=== PATIENT | male | born 2000 | race Caucasian/White ===

== ENCOUNTER 2021-08-29 10:13 | Emergency (ER) | payer OTHER ==
--- OUTSIDE RECORDS SUMMARY | 2021-08-29 10:15 | XMS REPORT | Continuity of Care Document ---
:2000 Author Organization [facility] t Address [address] [place] [address] Care Team Providers Name Role Phone NICK LOYOLA Primary Care Physician Unavailable Esperanza Hill Attending Clinician Esperanza DALAL Attending Clinician Unavailable Livia DA SILVA Attending Clinician Unavailable Esperanza CAMPOS Attending Clinician Unavailable Bouchra Jules Attending Clinician Shahida ANNEALING TORCH OPERATOR Attending Clinician SHAHIDA Attending Clinician Unavailable Nick Loyola MD Attending Clinician NICK LOYOLA Attending Clinician Unavailable Pob, Lab Main Attending Clinician Unavailable Provider, Urgent Care Attending Clinician Unavailable Lab, Fam Pob I Attending Clinician Unavailable Norman STALLINGS Attending Clinician NORMAN Attending Clinician Unavailable Doctor Unassigned, Name Attending Clinician Unavailable Esperanza DALAL Admitting Clinician Unavailable Payers Payer Name Policy Type Policy Number Effective Date Expiration Date Jerald [employer] [id number] 2020 00:00:00 Problems Condition Condition Condition Status Onset Resolution Last Treating Co mments Source Name Details Category Date Date Treatment Clinician Date No known No known Disease Unive rs active active ity of problems problems [facility] Allergies, Adverse Reactions, Alerts Allergy Allergy Status Severity Reaction(s) Onset Inactive Treating Comm ents Source Name Type Date Date Clinician NO KNOWN Drug Active Univers ALLERGIE Class ity of S [facility] Social History Social Habit Start Date Stop Date Quantity Comments Source Exposure to Not sure [facility] SARS-CoV-2 [facility] (event) Cope Alcohol intake 2021-04-18 2021-04-18 Ex-drinker [facility] 00:00:00 00:00:00 (finding) [facility] Tobacco use and 2020-07-25 2020-07-25 Former user [facility] of exposure 00:00:00 00:00:00 [facility] Sex Assigned At [birth year] [facility] y of 00:00:00 00:00:00 [facility] Smoking Status Start Date Stop Date Source Unknown if ever smoked [facility] Former smoker 2020-07-25 00:00:00 2020-07-25 00:00:00 [facility] Medications Ordered Filled Start Stop Current Ordering Indication Dosage Frequency Signature Comments Components Source Medication Medication Date Date Medication? Clinician (SIG) Name Name lidocaine-e 2020-06 No 10mL 10 mL, Uni vers pinephrine 04-19 Intraderma it y of (XYLOCAINE 03:00: 02:45 l, ONCE, 1 [place] W/EPINEPHRI 00 :00 dose, On Medi brandt [place]) [address] [place] [address] %-1:200,000 04/18/21 injection at 2200, 10 mL Routine ceFAZolin 2020-06- No 1000mg 1,000 mg, Univers (ANCEF) 04-19 Intramuscu ity o f injection 02:30: 01:48 lar, ONCE, [place] 1,000 mg 00 :00 1 dose, On Medic al [facility] 04/18/21 at 2130, STAT
Re ason for Anti-Infec tive: Empiric Therapy for Suspected Infection< br>Empiric Therapy Site: Skin / Soft tissue<br& gt;Duratio n of therapy: 7 days No known 2020-06 No Univers medications ity of 20:23: [address] doxycycline 2020- No 100mg 100 mg, U nivers hyclate 01-16 Oral, ity of (Vibramycin 01:15: 00:08 [place]CE, [place] capsule 00 :00 dose, Sun Medic al 100 mg 01/15/21 at Branch 2015, URIEL
Re ason for Anti-Infec tive: Empiric Therapy for Suspected Infection< br>Empiric Therapy Site: Skin / Soft tissue
Duration of therapy: 7 days doxycycline 2020- No [id number] 100mg Take 1 Univers hyclate 100 01-15 capsule by i ty of mg capsule 00:00: 04:59 mouth 2 Kwabena as 00 :00 (two) [facility] daily for 10 days. No known No Univers medications ity [facility] No known No [facility] No known No [facility] No known No [facility] No known No Univers medications [facility] Immunizations Ordered Filled Immunization Date Status Comments Sour e Immunization Name Name Td 2021-01-15 Completed [facility] 00:00:00 [facility] Branch Td 2021-01-15 Completed [facility] 00:00:00 [facility] Vital Signs Vital Name Observation Time Observation Value Comments Source Systolic blood 2021-04-19 02:45:00 133 mm[Hg] Univer sity of [facility] Diastolic blood 2021-04-19 02:45:00 86 mm[Hg] [facility] Heart rate 2021-04-19 02:45:00 91 /min [facility] Respiratory rate 2021-04-19 02:45:00 17 /min [facility] Oxygen saturation in 2021-04-19 02:45:00 97 /min [facility] Arterial blood by [facility] Pulse oximetry Branch Body weight 2021-04-19 01:59:00 90.719 kg [facility] BMI 2021-04-19 01:59:00 26.39 kg/m2 [facility] Body temperature 2021-04-19 01:17:00 37.06 Whit [facility] Body temperature 2021-01-15 23:59:00 36.89 Whit [facility] Systolic blood 2021-01-15 22:55:00 143 mm[Hg] Univer sity of [facility] Diastolic blood 2021-01-15 22:55:00 93 mm[Hg] Unive rsity [facility] Heart rate 2021-01-15 22:55:00 95 /min [facility]i ty [facility] [place] [facility] Respiratory rate 2021-01-15 22:55:00 16 /min Univ ers[facility] [place] [facility] Body height 2021-01-15 22:55:00 185.4 cm [facility] [place] [facility] Body weight 2021-01-15 22:55:00 90.719 kg [facility] [place] [facility] BMI 2021-01-15 22:55:00 26.39 kg/m2 Universi ty of [facility] Oxygen saturation in 2021-01-15 22:55:00 98 /min University of Arterial blood by [facility] Pulse oximetry Branch Systolic blood 2020-07-27 19:17:00 122 mm[Hg] Univer sity of pressure [place] [facility] Diastolic blood 2020-07-27 19:17:00 66 mm[Hg] Unive rsity of pressure [place] [facility] Heart rate 2020-07-27 19:17:00 77 /min [facility] [place] [facility] Body height 2020-07-27 19:17:00 185.4 cm [facility] [place] [facility] Body weight 2020-07-27 19:17:00 96.616 kg [facility] [place] [facility] BMI 2020-07-27 19:17:00 28.10 kg/m2 [facility] [place] [facility] Systolic blood 2020-07-25 16:52:00 162 mm[Hg] Univer sity of pressure [place] [facility] Diastolic blood 2020-07-25 16:52:00 84 mm[Hg] Unive rsity of pressure [facility] Branch Heart rate 2020-07-25 16:48:00 73 /min [facility]i ty [facility] [place] [facility] Body temperature 2020-07-25 16:48:00 37.17 Whit Univ ersity [facility] [place] [facility] Respiratory rate 2020-07-25 16:48:00 17 /min Univ ersity of [facility] Branch Body height 2020-07-25 16:48:00 185.4 cm [facility] [place] [facility] Body weight 2020-07-25 16:48:00 90.719 kg [facility] [place] [facility] BMI 2020-07-25 16:48:00 26.39 kg/m2 Universi ty of [facility] Branch Oxygen saturation in 2020-07-25 16:48:00 99 /min University of Arterial blood by [facility] Pulse oximetry Branch Procedures Procedure Date / Time Performing Clinician Source Performed CT KNEE LEFT WO CONTRAST 2021-04-19 02:18:27 David Dalal [facility] COVID-19 (ID NOW RAPID 2021-04-19 01:33:00 David Dalal [facility] TESTING) Medical Branch XR FOOT 3+ VW RIGHT 2021-01-15 23:24:41 Neelam Marie [facility] NOTICE OF PRIVACY 2021-01-15 22:43:28 Doctor Unassigned, [facility] PRACTICES [facility] CONSENT/REFUSAL FOR 2021-01-15 22:38:49 Doctor Unassigned, [facility] DIAGNOSIS AND TREATMENT [facility] US ABDOMEN COMPLETE 2020-07-29 16:27:34 Bev Pinedo [facility] COVID-19 (MOLECULAR 2020-07-18 21:02:00 Bev Pinedo [facility] TESTING [facility] NUCLEIC ACID AMPLIFICATION) LAB ONLY COVID 2020-07-18 21:02:00 Shahida [facility] [place] INTERPRETATION [facility] Encounters Start End Encounter Admission Attending Care Care Encounter Source Date/Time Date/Time Type Type Clinicians Facility Department ID 2021-04-24 Emergency [facility] [id number] Univers 10:37:03 [facility] 2021-04-18 2021-04-18 Emergency [facility] [id number] Univers 20:26:00 22:09:00 David Jean [id number] i ty [facility] [id number] [facility] [id number] [facility] 084 Branch 2021-04-18 2021-04-[address] [facility] ERT [id number] Univers 20:26:00 22:09:00 DAVID [facility] 2021-04-03 2021-04-03 Chang R REKHA [facility] [id number] Univers 08:30:00 08:30:00 EFREN [id number] [facility] 2021-04-03 2021-04-03 Outpatient Esperanza DA SILVA [facility] [id number] Univers 08:30:00 08:30:00 EFREN sena [facility] 2021-01-17 2021-01-17 Emergency E MARTHA CAMPOS [facility] [id number] [facility] 12:22:00 16:46:00 2021-01-15 2021-01-15 [facility] [id number] Univers 17:59:00 19:24:00 Neelam Shook Ted [id number] ity of [place] [id number] [facility] [id number] [facility] 084 Cope 2020-07-29 2020-07-29 [facility] [id number] Univers 09:59:57 23:59:00 Encounter Bev Jena [id number] ity of [place] [id number] [facility] [id number] [facility] 806 Cope 2020-07-29 2020-07-29 [facility] [id number] Univers 10:00:00 10:00:00 BEV Correa205 [facility] 2020-07-29 2020-07-29 Outpatient [facility] [id number] Univers 10:00:00 10:00:00 BEV sena [facility] 2020-07-27 2020-07-27 [facility] [id number] Univers 13:11:57 13:32:55 Visit [facility] [id number] it y of Nick Jean [id number] [place] as Professio [id number] [address] Office Building One 2020-07-27 2020-07-27 Outpatient Esperanza LOYOLA [facility] [id number] Univers 13:00:00 13:00:00 TOM [id number] nathen [facility] 2020-07-27 2020-07-27 [facility] [id number] Univers 13:00:00 13:00:00 TOM ity [facility] 2020-07-25 2020-07-25 Design Printing Machine Setter Kelsea, Alexa Lab Main [facility] [id number] Univers 11:42:47 11:57:47 Visit Bev Pinedo [id number] ity [id number] Profess[place] [id number] Al dical nal 353 [facility] 2020-07-25 2020-07-25 Urgent Provider, [facility] Urgent Care [facility] [id number] Univers 10:43:55 11:03:55 Care Bev Pinedo [id number] ity of [place] [id number] [place] as Professio [id number] [facility] 044 Cope Office [facility] One 2020-07-25 2020-07-25 Outpatient R [facility] [id number] Univers 10:40:00 10:40:00 [id number] [facility] 2020-07-25 2020-07-25 Outpatient R SHAHIDA [facility] [id number] Univers 10:40:00 10:40:00 [facility] 2020-07-18 2020-07-18 Laboratory Lab, [facility] Kelsea I [facility] [id number]. [id number] Univers 15:01:23 15:26:08 Only Bev Pinedo [id number] ity of [place] [id number] Kwabena as Professio [id number] [facility] 044 Cope Office [facility] One 2020-07-18 2020-07-18 Outpatient R [facility] [id number] Univers 15:00:00 15:00:00 [id number] [facility] 2020-07-18 2020-07-18 Outpatient R [facility] [id number] Univers 15:00:00 15:00:00 [facility] 2020-05-21 2020-05-21 Laboratory Lab, [facility] Fam Pob I [facility] [id number]. [id number] Univers 12:50:05 13:10:05 Only Awa Stringer [facility] [id number] ity of [place] [id number] Kwabena as Professio [phone] Al dical nal 044 Branch Office Building One 2020-05-21 2020-05-21 Outpatient R NORMAN [facility] [id number] Univers 12:40:00 12:40:00 AWA ity of [facility] 2020-05-21 2020-05-21 Letter Doctor JAMES [id number] Univers 00:00:00 00:00:00 (Out) Unassigned, STEVEN [id number] ity of [place] [facility] [id number] Kwabena as [id number] [facility] 044 Branch Results Test Description Test Time Test Results Result Source Comments Comments US ABDOMEN COMPLETE Normal abdominal [place] [address] ultrasound.[facility] 16:32:50 ABDOMEN COMPLETE Branch 07/29/2020 10:01 AM HISTORY: lower quadrant abdominal pain with intermittent diarrhea COMPARISON: None. FINDINGS: LIVER: Length of 15.8 cm. Normal in size and echo-texture. No focal hepaticlesion. ?Normal hepatopetal ?flow within the main portal vein. Main portalvein diameter: 1.1 cm. GALLBLADDER: No cholelithiasis, pericholecystic fluid, or gallbladderdistenti on. No sonographic Parsons's sign. The common bile duct measures 0.2cm. PANCREAS: The visualized portion of the pancreas is unremarkable. RIGHT KIDNEY: Length of 10.4 cm. Normal cortical thickness andechogenicity. No hydronephrosis. LEFT KIDNEY: Length of 10.6 cm. Normal cortical thickness and echogenicity.No hydronephrosis. SPLEEN: Measures 11.8 cm. Normal in appearance. No focal lesion. AORTA: The proximal aorta measures 1.8 cm. IVC: The visualized portion is unremarkable. Evaluation of lower abdomen inferior to umbilicus, at the region of paindid not show abnormality.. Rust, Radiant Results Inft User - 07/29/2020 10:33 AM CSTUS ABDOMEN COMPLETE 07/29/2020 10:01 AM HISTORY: lower quadrant abdominal pain with intermittent diarrhea COMPARISON: None. FINDINGS: LIVER: Length of 15.8 cm. Normal in size and echo-texture. No focal hepaticlesion. Normal hepatopetal flow within the main portal vein. Main portalvein diameter: 1.1 cm.GALLBLADDER: No cholelithiasis, pericholecystic fluid, or gallbladderdistenti on. No sonographic Parsons's sign. The common bile duct measures 0.2cm.PANCREAS: The visualized portion of the pancreas is unremarkable.RIGHT KIDNEY: Length of 10.4 cm. Normal cortical thickness andechogenicity. No hydronephrosis.LEFT KIDNEY: Length of 10.6 cm. Normal cortical thickness and echogenicity.No hydronephrosis.SPLE EN: Measures 11.8 cm. Normal in appearance. No focal lesion.AORTA: The proximal aorta measures 1.8 cm.IVC: The visualized portion is unremarkable. Evaluation of lower abdomen inferior to umbilicus, at the region of paindid not show abnormality..IMPRES BRADEN Normal abdominal ultrasound. LAB ONLY COVID 2020-01-[address] 15:17:00 pretation/Recommend [facility] h ations: Molecular NAAT Tests for Active Infection with the SARS-CoV-2 Virus: This patient has tested negative on two occasions for the SARS-CoV-2 virus that causes COVID-19 illness. This most likely indicates that the patient does not have an active infection with the SARS-CoV-2 virus, especially if these tests coincide with the patient's current presentation. However, infection is not completely ruled out as the false negative rate for molecular NAAT testing using a nasopharyngeal sample can be up to 30%, mostly dependent on the timing of sample collection in relation to illness onset and any deficiencies in sampling techniques. If the patient has symptoms concerning for COVID-19 illness, a repeat NAAT test (PCR, Rapid ID Now, etc.) should be performed, at which time the SARS-CoV-2 virus - if present - may have reached a detectable viral load (usually peaking by the end of the first week of symptoms). Tests for IgM and/or IgG Antibodies to SARS-CoV-2 Virus: Testing for IgM and IgG antibodies 1-3 weeks after illness onset will indicate whether the patient has produced antibodies to the virus. At this time, it is not known if the production of antibodies - specifically IgG antibodies - indicates whether the patient is immune to future infections with the SARS-CoV-2 virus. Interpretation Result Comments:These interpretation comments are based upon all COVID-19 testing the patient has had at [facility], including molecular NAAT testing (more commonly known as PCR testing and Rapid ID Now testing) and antibody testing. It does not take into account any testing that a patient has had outside of the [facility] medical record. [facility] LABORATORY SERVICESCOVID [id number] NAAT (no units) ? ? Date ? Value ? 07/18/2020 ? Not Detected ? ? ? 05/21/2020 ? Not Detected ? [facility]ORATORY SERVICES COVID-19 (MOLECULAR TESTING 2020-07-19 23:45:00 NUCLEIC ACID AMPLIFICATION) Test Item Value Reference Range Interpretation Comme nts SARS-CoV-2 NAAT (test code = Not Detected Not Detected 19781-0) IVAN (test code = IVAN) [employer] Aptima SARS-CoV-2 Assay is a nucleic acid amplification test intended for the qualitative detection of RNA from SARS-CoV-2 from nasopharyngeal (OUTDOOR EDUCATION TEACHER) specimens. ?It is used under Emergency Use Authorization (EUA) by FDA. A positive result is indicative of the presence of SARS-CoV-2 RNA. ?Clinical correlation with patient history and other diagnostic information is necessary to determine patient infection status. A negative (Not Detected) result does not preclude SARS-CoV-2 infection. ?Clinical correlation with patient history and other diagnostic information should be used in patient management decisions. Invalid: Unable to generate a valid test result on this specimen. ?Please submit a new specimen for repeat testing if clinically indicated. Lab Interpretation (test code = Normal 55654-6) [facility]
--- NOTE | 2021-08-29 11:22 | RAD REPORT ---
EXAM DESCRIPTION: RAD - Knee Right 3 View - 08/29/2021 11:12 am CLINICAL HISTORY: PAIN COMPARISON: No comparisons FINDINGS: No bone or joint abnormality.
--- NOTE | 2021-08-29 11:24 | ER ---
Nurse's Notes [facility] Name: Amrik Oconnor Jr Age: 20 yrs Sex: Male : 2000 Arrival Date: 08/29/2021 Time: 10:15 Bed 17 Private MD: Diagnosis: Pain in right knee Presentation: 08/29 10:22 Chief complaint: Patient states: [place] [employer], slipped on boat and hyperextended R ph knee, c/o R knee pain, ambulatory from triage, denies other injury. Coronavirus screen: Vaccine status: Patient reports being unvaccinated. Ebola Screen: No symptoms or risks identified at this time. Initial Sepsis Screen: Does the patient meet any 2 criteria? No. Patient's initial sepsis screen is negative. Does the patient have a suspected source of infection? No. Patient's initial sepsis screen is negative. Risk Assessment: Do you want to hurt yourself or someone else? Patient reports no desire to harm self or others. Onset of symptoms was August 29, 2021. 10:22 Method Of Arrival: Ambulatory 10:22 Acuity: GENIE 4 ph Triage Assessment: 10:18 General: Appears in no apparent distress. uncomfortable, Behavior is calm, cooperative, bp appropriate for age. Pain: Complains of pain in right knee. EENT: No deficits noted. Neuro: No deficits noted. Cardiovascular: No deficits noted. Respiratory: No deficits noted. GI: No signs and/or symptoms were reported involving the gastrointestinal system. : No signs and/or symptoms were reported regarding the genitourinary system. Derm: No deficits noted. Musculoskeletal: Circulation, motion, and sensation intact. Reports pain in right knee. - Immunization history:: Adult Immunizations up to date. - Social history:: Smoking status: Patient denies any tobacco usage or history of. Screenin:19 Abuse screen: Denies threats or abuse. Denies injuries from another. Nutritional bp screening: No deficits noted. Tuberculosis screening: No symptoms or risk factors identified. Fall Risk Fall in past 12 months (25 points). No secondary diagnosis (0 pts). No IV (0 pts). Ambulatory Aid- None/Bed Rest/Nurse Assist (0 pts). Gait- Weak (10 pts.). Mental Status- Oriented to own ability (0 pts). Total Elias Fall Scale indicates Low Risk Score (25-44 pts). Fall prevention measures have been instituted. Side Rails Up X 2 Placed close to Nursing Station Frequent Obs/Assesments occuring As available Patient and Family Educated on Fall Prevention Program and strategies. Assessment: 10:19 General: SEE TRIAGE NOTE. bp 10:20 General: Behavior is calm, cooperative, appropriate for age. Pain: Complains of pain in cb5 right leg and right knee Pain currently is 2 out of 10 on a pain scale. Neuro: No deficits noted. Level of Consciousness is awake, alert, obeys commands, Oriented to person, place, time, situation, Appropriate for age. Cardiovascular: No deficits noted. Respiratory: No deficits noted. GI: No deficits noted. : No deficits noted. EENT: No deficits noted. Derm: No deficits noted. Musculoskeletal: Reports twisted his right knee. Vital Signs: 10:22 BP 148 / 90; Pulse 101; Resp 18; Temp 98.6; Pulse Ox 97% on R/A; Weight 99.79 kg; ph Height 6 ft. 1 in. (185.42 cm); Pain 6/10; 11:15 BP 138 / 87; Pulse 88; Resp 16; Pulse Ox 98% ; Pain 2/10; cb5 10:22 Body Mass Index 29.03 (99.79 kg, 185.42 cm) ph ED Course: 10:15 Patient arrived in ED. ds1 10:16 Kathi Sauer FNP-C [facility] kb 10:16 Baldemar Ocasio MD is Attending Physician. kb 10:18 Arm band placed on. bp 10:19 Patient has correct armband on for positive identification. Bed in low position. Call bp light in reach. Side rails up X2. 10:23 Triage completed. ph 10:33 Yvette Washington, RN is Primary Nurse. cb5 11:12 Knee Right 3 View XRAY In Process Unspecified. EDMS 11:27 No provider procedures requiring assistance completed. cb5 11:32 Patient did not have IV access during this emergency room visit. cb5 Administered Medications: No medications were administered Outcome: 11:24 Discharge ordered by . kb 11:32 Discharged to home ambulatory. cb5 11:32 Condition: stable 11:32 Discharge instructions given to patient. 11:33 Patient left the ED. cb5 Signatures: Dispatcher [employer] EDMS Kathi Sauer, TRUST MANAGER-C TRUST MANAGER-Ckb Helen Glover ds1 Joanne Danielson, RN RN ph Perry Hernandez, RN RN bp Yvette Washington RN RN cb5
--- NOTE | 2021-08-29 11:24 | EDPHYS ---
Physician Documentation [facility] Name: Amrik Oconnor Jr Age: 20 yrs Sex: Male : 2000 Arrival Date: 08/29/2021 Time: 10:15 Bed 17 Private MD: ED Physician Baldemar Ocasio HPI: 08/29 11:08 This 20 yrs old Male presents to ER via Ambulatory with complaints of Fall Injury. kb 11:09 The patient presents with pain. The complaints affect the right knee. Context: The kb problem was sustained outdoors, resulted from twisting of the extremity, the patient can fully bear weight, the patient is able to ambulate. Onset: The symptoms/episode began/occurred just prior to arrival. Modifying factors: The symptoms are alleviated by nothing. the symptoms are aggravated by nothing. Associated signs and symptoms: The patient has no apparent associated signs or symptoms. Treatment prior to arrival includes: no previous treatment. Severity of symptoms: At their worst the symptoms were mild, moderate, in the emergency department the symptoms are unchanged. The patient has not experienced similar symptoms in the past. The patient has not recently seen a physician. Pt states he was on a boat that was on a trailer and fell off twisting right knee. Denies any other injuries. - Immunization history:: Adult Immunizations up to date. - Social history:: Smoking status: Patient denies any tobacco usage or history of. ROS: 11:07 Constitutional: Negative for fever, chills, and weight loss. kb 11:07 MS/extremity: Positive for pain, of the right knee. 11:07 All other systems are negative. Exam: 11:07 Constitutional: This is a well developed, well nourished patient who is awake, alert, kb and in no acute distress. Head/Face: Normocephalic, atraumatic. ENT: Moist Mucous membranes Respiratory: Respirations even and unlabored. No increased work of breathing. Talking in full sentences Skin: Warm, dry with normal turgor. Normal color. Neuro: Awake and alert, GCS 15, oriented to person, place, time, and situation. Moves all extremities. Normal gait. Psych: Awake, alert, with orientation to person, place and time. Behavior, mood, and affect are within normal limits. 11:07 Musculoskeletal/extremity: Extremities: grossly normal except: noted in the right knee: pain, ROM: intact in all extremities, Circulation is intact in all extremities. Sensation intact. Weight bearing: able to fully bear weight. Vital Signs: 10:22 BP 148 / 90; Pulse 101; Resp 18; Temp 98.6; Pulse Ox 97% on R/A; Weight 99.79 kg; ph Height 6 ft. 1 in. (185.42 cm); Pain 6/10; 11:15 BP 138 / 87; Pulse 88; Resp 16; Pulse Ox 98% ; Pain 2/10; cb5 10:22 Body Mass Index 29.03 (99.79 kg, 185.42 cm) ph MDM: 10:19 Patient medically screened. kb 11:07 Data reviewed: vital signs, nurses notes. Data interpreted: Pulse oximetry: on room air kb is 97 %. Interpretation: normal. 11:22 Counseling: I had a detailed discussion with the patient and/or guardian regarding: the kb historical points, exam findings, and any diagnostic results supporting the discharge/admit diagnosis, radiology results, the need for outpatient follow up, a orthopedic surgeon, to return to the emergency department if symptoms worsen or persist or if there are any questions or concerns that arise at home. 08/29 10:19 Order name: Knee Right 3 View XRAY; Complete Time: 11:22 kb Administered Medications: No medications were administered Disposition: 17:05 Co-signature as Attending Physician, Baldemar Ocasio MD I agree with the assessment and rn plan of care. Attestation: The patient's history, exam findings, diagnostics, and a summary of any interventions or procedures was reviewed in detail with Kathi DOUGHERTY. Disposition Summary: 08/29/21 11:24 Discharge Ordered Location: Home kb Condition: Stable kb Diagnosis - Pain in right knee kb Followup: kb - With: Emergency Department - When: As needed - Reason: Worsening of condition Followup: kb - With: Private Physician - When: 2 - 3 days - Reason: Recheck today's complaints, Continuance of care, Re-evaluation by your physician Discharge Instructions: - Discharge Summary Sheet kb - Knee Sprain, Adult, [id number] kb - Acute Knee Pain, Adult, [id number] kb Forms: - Medication Reconciliation Form kb - Thank You Letter kb - Antibiotic Education kb - Prescription Opioid Use kb Signatures: Dispatcher [employer] EDKathi Mancera [employer]-C [employer]PA[employer]-Ckb Baldemar Ocasio MD MD rn Yvette Washington RN RN cb5
[2021-08-29 11:38] VITALS: TEMP 98.6
[2021-08-29 11:39] VITALS: BP 138/87; O2SAT 98
== END 2021-08-29 11:33 | disposition home or self-care (01) ==
LOC: ER 10:13
DX: M25.561 Pain in right knee (principal)
CPT/HCPCS: 99283